=== PATIENT | female | born 1980 | race Caucasian/White ===

== ENCOUNTER 2017-08-08 15:21 | Emergency (ER) | payer SELFPAY ==
[~2017-08-08] VITALS: Ht 172.7 cm; Wt 108.9 kg
[~2017-08-08 15:21] MED LIST: ALB0.5V IH; BUTA-273 PO; DICL50TA4 PO; FAMO-119 PO; GABA600T2 PO; MONT10TA21 PO; OMEP20TA7 PO; OMEP40CA36 PO; ONDN4T PO; RT-ALBUINH IH
--- NOTE | 2017-08-08 15:35 | ED EENT ---
History of Present Illness General Stated Complaint: L SIDE FACIAL DROOP Source: patient Exam Limitations: no limitations History of Present Illness Date Seen by Provider: Aug 08, 2017 Time Seen by Provider: 15:30 Initial Comments to ER per private vehicle with reports of left-sided facial drooping. She had pain behind left ear yesterday evening, she took several Excedrin to alleviate this pain. Even wearing her sunglasses is painful. Today she awakened with left facial paralysis involving the forehead the cheek and the mandible. Her eye does not close on the left. She denies any weakness of upper or lower extremities. No history of this.she also reports a metallic taste in her mouth. Timing/Duration: abrupt Severity: moderate Location: facial Associated Symptoms: No fever Allergies and Home Medications Allergies Coded Allergies: pregabalin (Verified Allergy, Unknown, 06/26/17) sulfamethoxazole (Verified Allergy, Unknown, 06/26/17) trimethoprim (Verified Allergy, Unknown, 06/26/17) Home Medications Acyclovir 400 Mg Tablet, 400 MG PO 5XD Prescribed by: MOHSEN CERRATO on 08/08/17 154 Albuterol Sulfate 2.5 Mg/0.5 Ml Vial.neb, 2.5 MG IH Q6H PRN for SHORTNESS OF BREATH, (Reported) Albuterol Sulfate 1 Puff Puff, 2 PUFF IH Q4H, (Reported) 1 PUFF = 90 MCG Butalbital/Aspirin/Caffeine 1 Each Tablet, 1 EACH PO BID, (Reported) Diclofenac Potassium 50 Mg Tablet, 50 MG PO BID, (Reported) Famotidine 20 Mg Tablet, 20 MG PO BID Prescribed by: DRISS BOWLES on 06/26/17 140 Gabapentin 600 Mg Tablet, 600 MG PO TID, (Reported) Montelukast Sodium 10 Mg Tablet, 10 MG PO DAILY, (Reported) Omeprazole 40 Mg Capsule.dr, 40 MG PO DAILY, (Reported) Omeprazole 20 Mg Tablet.dr, 20 MG PO BID Prescribed by: DRISS BOWLES on 06/26/17 140 Ondansetron HCl 4 Mg Tab, 8 MG PO DAILY, (Reported) Pantoprazole Sodium 40 Mg Tablet., 40 MG PO DAILY Prescribed by: MOHSEN CERRATO on 08/08/17 154 Prednisone 5 Mg Tablet, 5 MG PO UD 10 tablets daily for 5 days then reduce by one tablet daily until gone Prescribed by: MOHSEN CERRATO on 08/08/17 2154 Patient Home Medication List Home Medication List Reviewed: Yes Review of Systems Constitutional: see HPI Eyes: See HPI, Other Ears: No Symptoms Reported Nose: no symptoms reported Mouth: no symptoms reported Throat: no symptoms reported Respiratory: no symptoms reported Cardiovascular: no symptoms reported Musculoskeletal: no symptoms reported Skin: no symptoms reported Neurological: No Symptoms Reported Hematologic/Lymphatic: No Symptoms Reported Immunological/Allergic: no symptoms reported Past Yovtunq-Ijhqei-Ardrsx Hx Patient Social History Drug of Choice: marijuana Type Used: Cigars Recent Foreign Travel: No Contact w/Someone Who Travel: No Past Medical History Surgeries: Yes (gastric ulcers/laser surgery) Abdominal, Hysterectomy Respiratory: Yes COPD Cardiac: Yes Hypertension Neurological: No Genitourinary: No Gastrointestinal: Yes Ulcer Musculoskeletal: Yes Degenerate Disk Disease Endocrine: No HEENT: No Cancer: No Psychosocial: Yes Anxiety, Bipolar, Depression Integumentary: No Blood Disorders: Yes (Hepatitis C) Physical Exam Vital Signs Vital Signs - First Documented 08/08/17 15:40 Temp 97.1 Pulse 110 Resp 27 B/P (MAP) 189/99 (129) Pulse Ox 95 General Appearance: WD/WN, no apparent distress Eyes: bilateral eye normal inspection, bilateral eye PERRL, bilateral eye EOMI Ears: bilateral ear auricle normal, bilateral ear canal normal, bilateral ear TM normal Mouth/Throat: normal mouth inspection, pharynx normal Neck: non-tender, full range of motion Respiratory: no respiratory distress, no accessory muscle use Gastrointestinal: normal bowel sounds, non tender Neurologic/Psychiatric: alert, normal mood/affect, oriented x 3 Skin: normal color, warm/dry , the cheek, lower face. There is no extremity weakness or other neurologic deficit. She is tender to palpation over the mastoid process but this is without erythema or swelling. Tympanic membrane is normal in appearance. Progress/Results/Core Measures Results/Orders Lab Results Laboratory Tests Test 08/08/17 15:51 Range/Units White Blood Count 9.6 4.3-11.0 10^3/uL Red Blood Count 5.45 4.35-5.85 10^6/uL Hemoglobin 16.4 H 11.5-16.0 G/DL Hematocrit 47 35-52 % Mean Corpuscular Volume 87 80-99 FL Mean Corpuscular Hemoglobin 30 25-34 PG Mean Corpuscular Hemoglobin Concent 35 32-36 G/DL Red Cell Distribution Width 13.2 10.0-14.5 % Platelet Count 298 130-400 10^3/uL Mean Platelet Volume 11.8 H 7.4-10.4 FL Neutrophils (%) (Auto) 62 42-75 % Lymphocytes (%) (Auto) 27 12-44 % Monocytes (%) (Auto) 9 0-12 % Eosinophils (%) (Auto) 2 0-10 % Basophils (%) (Auto) 0 0-10 % Neutrophils # (Auto) 5.9 1.8-7.8 X 10^3 Lymphocytes # (Auto) 2.6 1.0-4.0 X 10^3 Monocytes # (Auto) 0.8 0.0-1.0 X 10^3 Eosinophils # (Auto) 0.2 0.0-0.3 10^3/uL Basophils # (Auto) 0.0 0.0-0.1 10^3/uL Sodium Level 140 135-145 MMOL/L Potassium Level 3.8 3.6-5.0 MMOL/L Chloride Level 107 98-107 MMOL/L Carbon Dioxide Level 19 L 21-32 MMOL/L Anion Gap 14 5-14 MMOL/L Blood Urea Nitrogen 12 7-18 MG/DL Creatinine 0.82 0.60-1.30 MG/DL Estimat Glomerular Filtration Rate > 60 BUN/Creatinine Ratio 15 Glucose Level 91 70-105 MG/DL Calcium Level 10.1 8.5-10.1 MG/DL Total Bilirubin 0.4 0.1-1.0 MG/DL Aspartate Amino Transf (AST/SGOT) 22 5-34 U/L Alanine Aminotransferase (ALT/SGPT) 28 0-55 U/L Alkaline Phosphatase 83 40-136 U/L Total Protein 8.7 H 6.4-8.2 GM/DL Albumin 4.8 H 3.2-4.5 GM/DL My Orders Orders - MOHSEN CERRATO IN [employer] Cbc With Automated Diff (08/08/17 15:29) Comprehensive Metabolic Panel (08/08/17 15:29) Ua Culture If Indicated (08/08/17 15:29) Ct Head Wo (08/08/17 15:29) Hydrocodone/Apap 5/325 Tablet (Lortab 5 (08/08/17 16:00) Medications Given in ED Current Medications Medications Dose Ordered Sig/[place] Route Start Time Stop Time Status Last Admin Dose Admin Acetaminophen/ Hydrocodone Bitart 1 tab ONCE ONCE PO 08/08/17 16:00 08/08/17 16:01 DC 08/08/17 16:13 1 TAB Vital Signs/I&O 08/08/17 15:40 Temp 97.1 Pulse 110 Resp 27 B/P (MAP) 189/99 (129) Pulse Ox 95 Departure Impression Primary Impression: May's palsy Disposition: HOME, SELF-CARE Condition: Stable Departure-Patient Inst. Decision time for Depature: 15:41 Referrals: NO,LOCAL PHYSICIAN (PCP/Family) Primary Care Physician Patient Instructions: May's Palsy Add. Discharge Instructions: 1. Steroids as directed 2. Follow-up with your doctor next week 3. Return to ER for any worsening.. If you cannot afford the antivirals ( acyclovir) the steroids will be the most beneficial so definitely fill the prednisone. Scripts Hydrocodone/Acetaminophen ([place] 5-325 Tablet) 1 Each Tablet 1 EACH PO Q4H PRN for PAIN-MODERATE TO SEVERE, #5 TAB do not fill unless prednisone and acyclovir is also filled Prov: MOHSEN CERRATO APRN 08/08/17 Pantoprazole Sodium (Protonix) 40 Mg Tablet.dr 40 MG PO DAILY, #14 TAB Prov: MOHSEN CERRATO APRN 08/08/17 Acyclovir (Acyclovir) 400 Mg Tablet 400 MG PO 5XD, #35 TAB Prov: MOHSEN CERRATO APRN 08/08/17 Prednisone (Prednisone) 5 Mg Tablet 5 MG PO UD, #95 TAB 10 tablets daily for 5 days then reduce by one tablet daily until gone Prov: MOHSEN CERRATO APRN 08/08/17 Work/School Note: Work Release Form Date Seen in the Emergency Department: Aug 08, 2017 Return to Work: Aug 10, 2017 MOHSEN CERRATO APRN Aug 08, 2017 15:35
[2017-08-08] MEDS ORDERED: PRED5TAB PO (15:44)
[2017-08-08] MEDS ORDERED: ACYC400T PO (15:44)
[2017-08-08] MEDS ORDERED: PANT40TA2 PO (15:44)
[2017-08-08 16:00] LABS: BASOPHILS % (AUTO) 0 % (0-10); EOSINOPHILS # (AUTO) 0.2 10^3/uL (0.0-0.3); EOSINOPHILS % (AUTO) 2 % (0-10); HEMATOCRIT 47 % (35-52); HEMOGLOBIN 16.4 G/DL (11.5-16.0); LYMPHOCYTES # (AUTO) 2.6 X 10^3 (1.0-4.0); LYMPHOCYTES % (AUTO) 27 % (12-44); MEAN CORPUSCULAR HEMOGLOBIN 30 PG (25-34); MEAN CORPUSCULAR HGB CONC 35 G/DL (32-36); MEAN CORPUSCULAR VOLUME 87 FL (80-99); MEAN PLATELET VOLUME 11.8 FL (7.4-10.4); MONOCYTES # (AUTO) 0.8 X 10^3 (0.0-1.0); MONOCYTES % (AUTO) 9 % (0-12); NEUTROPHILS # (AUTO) 5.9 X 10^3 (1.8-7.8); NEUTROPHILS % (AUTO) 62 % (42-75); PLATELET COUNT 298 10^3/uL (130-400); RED BLOOD COUNT 5.45 10^6/uL (4.35-5.85); RED CELL DISTRIBUTION WIDTH 13.2 % (10.0-14.5); WHITE BLOOD COUNT 9.6 10^3/uL (4.3-11.0)
[2017-08-08] MEDS ORDERED: HYDROcodone/APAP 5 MG/325 MG (LORTAB) TAB PO ONE (16:00)
[2017-08-08 16:20] LABS: ALANINE AMINOTRANSFERASE 28 U/L (0-55); ALBUMIN 4.8 GM/DL (3.2-4.5); ALKALINE PHOSPHATASE 83 U/L (40-136); BILIRUBIN,TOTAL 0.4 MG/DL (0.1-1.0); BUN/CREATININE RATIO 15; CALCIUM 10.1 MG/DL (8.5-10.1); CARBON DIOXIDE 19 MMOL/L (21-32); CHLORIDE 107 MMOL/L (98-107); CREATININE SERUM 0.82 MG/DL (0.60-1.30); GFR ESTIMATED > 60; GLUCOSE 91 MG/DL (70-105); POTASSIUM 3.8 MMOL/L (3.6-5.0); SODIUM 140 MMOL/L (135-145); TOTAL PROTEIN 8.7 GM/DL (6.4-8.2)
--- NOTE | 2017-08-08 16:45 | Diagnostic Imaging Report ---
PROCEDURE: CT head without contrast. TECHNIQUE: Multiple contiguous axial images were obtained through the brain without the use of intravenous contrast. INDICATION: Left-sided facial droop. Tongue numbness. COMPARISON: None. FINDINGS: No intracranial hemorrhage, mass effect, hydrocephalus, or extra-axial fluid collections. No CT evidence of acute infarction. Osseous structures are intact. The visualized paranasal sinuses and mastoids are clear. IMPRESSION: Negative head CT. Dictated by: Dictated on workstation # [id number]
[2017-08-08] MEDS ORDERED: HYDR-757 PO (16:48)
[2017-08-08 16:59] VITALS: BP 189/99
== END 2017-08-08 16:59 | disposition home or self-care (01) ==
LOC: EDUNIT# 15:21 → ER 15:22
DX: G51.0 Bell's palsy (principal); J44.9 Chronic obstructive pulmonary disease, unspecified; I10 Essential (primary) hypertension; F41.9 Anxiety disorder, unspecified; F31.9 Bipolar disorder, unspecified; F17.210 Nicotine dependence, cigarettes, uncomplicated; Z87.19 Personal history of other diseases of the digestive system; Z90.710 Acquired absence of both cervix and uterus; Z98.890 Other specified postprocedural states; Z88.1 Allergy status to other antibiotic agents; Z88.2 Allergy status to sulfonamides
CPT/HCPCS: 36415; 70450; 80053; 85025

== ENCOUNTER 2022-01-16 12:58 | Emergency (ER) | payer SELFPAY ==
[~2022-01-16] VITALS: Ht 172 cm; Wt 146.0 kg
[~2022-01-16 12:58] MED LIST changes: +ACYC400T21 PO; +ALBU8.5H6 IH; -GABA600T2 PO; +GBPN600T PO; +HYDR-4226 PO; +OMEP20TA56 PO; -OMEP20TA7 PO; -OMEP40CA36 PO; +OMEP40CA6 PO; +PANT40TA2 PO; +PRED5TAB PO; -RT-ALBUINH IH
--- NOTE | 2022-01-16 13:13 | ED General ---
General Chief Complaint: Cardiac/General Problems Stated Complaint: SOA/CHEST PAIN/LEFT ARM NUMBNESS Nursing Triage Note: ARRIVED VIA AMB TO ROOM 05 ET STATES SHE HAS BEEN SICK FOR APPX 2 WEEKS BUT TODAY STARTED HAVING SOA, CHEST PAIN, AND LEFT ARM PAIN. Source of Information: Patient Exam Limitations: No Limitations History of Present Illness Date Seen by Provider: Jan 16, 2022 Time Seen by Provider: 13:00 Initial Comments 41-year-old female presents to the emergency department today for chest pain, shortness of breath and left arm numbness. She tells me she has been sick for 2 weeks. Initially she was diagnosed with bronchitis and started on a steroid and antibiotic. She was feeling worse after completion of this therapy so she went to the ER in [place]. She is told she had a "touch of pneumonia." She was started on a higher dose of steroids and a "more aggressive antibiotic." She is not having any fevers or chills but is still having significant coughing fits. She does have COPD and has been using nebulizer at home which has been helping her. She was getting out of car earlier and had an episode of sharp stabbing chest pain that was central with radiation to her left arm. She also had some numbness in her left arm during this event. Symptoms have completely resolved at present. Allergies and Home Medications Allergies Coded Allergies: pregabalin (Verified Allergy, Unknown, 06/26/17) sulfamethoxazole (Verified Allergy, Unknown, 06/26/17) trimethoprim (Verified Allergy, Unknown, 06/26/17) Patient Home Medication List Home Medication List Reviewed: Yes Acyclovir (Acyclovir) 400 Mg Tablet, 400 MG PO 5XD Prescribed by: MOHSEN CERRATO on 08/08/17 4917 Albuterol Sulfate (Albuterol Sulfate) 2.5 Mg/0.5 Ml Vial.neb, 2.5 MG IH Q6H PRN for SHORTNESS OF BREATH, (Reported) Entered as Reported by: NARCISA OLSEN on 06/26/17 1159 Albuterol Sulfate (Ventolin Hfa) 1 Puff Puff, 2 PUFF IH Q4H, (Reported) Entered as Reported by: NARCISA OLSEN on 06/26/17 1159 Butalbital/Aspirin/Caffeine (Yzqhig-Uqmytwn-Eqavi 50-325-40) 1 Each Tablet, 1 EACH PO BID, (Reported) Entered as Reported by: NARCISA OLSEN on 06/26/17 1159 Diclofenac Potassium (Diclofenac Potassium) 50 Mg Tablet, 50 MG PO BID, (Reported) Entered as Reported by: NARCISA OLSEN on 06/26/17 115 Famotidine (Pepcid) 20 Mg Tablet, 20 MG PO BID Prescribed by: DRISS BOWLES on 06/26/17 1408 Gabapentin (Gabapentin) 600 Mg Tablet, 600 MG PO TID, (Reported) Entered as Reported by: NARCISA OLSEN on 06/26/17 1159 Hydrocodone/Acetaminophen (Hydrocodone/Acetaminophen 5 MG/325 MG TAB) 1 Each Tablet, 1 EACH PO Q4H PRN for PAIN-MODERATE TO SEVERE Prescribed by: MOHSEN CERRATO on 08/08/17 1648 Montelukast Sodium (Singulair) 10 Mg Tablet, 10 MG PO DAILY, (Reported) Entered as Reported by: NARCISA OLSEN on 06/26/17 115 Omeprazole (Omeprazole) 40 Mg Capsule.dr, 40 MG PO DAILY, (Reported) Entered as Reported by: NARCISA OLSEN on 06/26/17 1159 Omeprazole (Omeprazole) 20 Mg Tablet.dr, 20 MG PO BID Prescribed by: DRISS BOWLES on 06/26/17 1408 Ondansetron HCl (Zofran) 4 Mg Tab, 8 MG PO DAILY, (Reported) Entered as Reported by: NARCISA OLSEN on 06/26/17 115 Pantoprazole Sodium (Protonix) 40 Mg Tablet.dr, 40 MG PO DAILY Prescribed by: MOHSEN CERRATO on 08/08/17 154 Prednisone (Prednisone) 5 Mg Tablet, 5 MG PO UD Prescribed by: MOHSEN CERRATO on 08/08/17 154 Review of Systems Review of Systems Constitutional: no symptoms reported EENTM: nose pain, throat pain Respiratory: cough, short of breath Cardiovascular: chest pain Gastrointestinal: no symptoms reported Genitourinary: no symptoms reported Musculoskeletal: no symptoms reported Skin: no symptoms reported Psychiatric/Neurological: No Symptoms Reported Hematologic/Lymphatic: No Symptoms Reported Immunological/Allergic: no symptoms reported Past Ycqfzsp-Saoylq-Riollz Hx Patient Social History Tobacco Use?: Yes Smoking Status: Current Everyday Smoker Substance use?: Yes Substance type: Marijuana Alcohol Use?: No Immunizations Up To Date First/Initial COVID19 Vaccinat: 1 WEEK AGO COVID19 Vaccine Senior Clinician: PHIAMADEO Past Medical History Surgeries: Yes (gastric ulcers/laser surgery) Abdominal, Hysterectomy Respiratory: Yes COPD Cardiac: Yes Hypertension Neurological: No Genitourinary: No Gastrointestinal: Yes Ulcer Musculoskeletal: Yes Degenerate Disk Disease Endocrine: No HEENT: No Cancer: No Psychosocial: Yes Anxiety, Bipolar, Depression Integumentary: No Blood Disorders: Yes (Hepatitis C) Family Medical History Reviewed Nursing Family Hx No Pertinent Family Hx Physical Exam Vital Signs Vital Signs - First Documented 01/16/22 13:00 Temp 36.6 Pulse 101 Resp 16 B/P (MAP) 141/101 (114) Pulse Ox 97 O2 Delivery Room Air Capillary Refill : Less Than 3 Seconds Height, Weight, BMI Height: 5'8.00" Weight: 240lbs. oz. 108.410651ny; 49.00 BMI Method:Stated General Appearance: No Apparent Distress, WD/WN HEENT: Normal ENT Inspection, Pharynx Normal Neck: Full Range of Motion, Normal Inspection, Non Tender, Supple Respiratory: Chest Non Tender, No Accessory Muscle Use, No Respiratory Distress, Wheezing (Expiratory wheezing bilaterally.) Cardiovascular: No Edema, No Gallop, No JVD, No Murmur, Normal Peripheral Pulses, Tachycardia (Intermittent tachycardia) Gastrointestinal: Normal Bowel Sounds, No Organomegaly, No Pulsatile Mass, Non Tender, Soft Back: Normal Inspection, No CVA Tenderness, No Vertebral Tenderness Extremity: Normal Capillary Refill, Normal Inspection, Normal Range of Motion, Non Tender, No Calf Tenderness Neurologic/Psychiatric: Alert, Oriented x3, No Motor/Sensory Deficits, Normal Mood/Affect, buckle attacher II-XII Norm as Tested Skin: Normal Color, Warm/Dry Lymphatic: No Adenopathy Progress/Results/Core Measures Suspected Sepsis SIRS Temperature: Pulse: 101 Respiratory Rate: 16 Laboratory Tests 01/16/22 13:00: White Blood Count 12.4H Blood Pressure 141 /101 Mean: 114 Laboratory Tests 01/16/22 13:00: Creatinine 0.94, Platelet Count 345 Results/Orders Lab Results Laboratory Tests Test 01/16/22 13:00 Range/Units White Blood Count 12.4 H 4.3-11.0 10^3/uL Red Blood Count 5.02 3.80-5.11 10^6/uL Hemoglobin 15.7 11.5-16.0 g/dL Hematocrit 46 35-52 % Mean Corpuscular Volume 92 80-99 fL Mean Corpuscular Hemoglobin 31 25-34 pg Mean Corpuscular Hemoglobin Concent 34 32-36 g/dL Red Cell Distribution Width 13.2 10.0-14.5 % Platelet Count 345 130-400 10^3/uL Mean Platelet Volume 10.5 9.0-12.2 fL Immature Granulocyte % (Auto) 0 % Neutrophils (%) (Auto) 64 42-75 % Lymphocytes (%) (Auto) 26 12-44 % Monocytes (%) (Auto) 7 0-12 % Eosinophils (%) (Auto) 2 0-10 % Basophils (%) (Auto) 0 0-10 % Neutrophils # (Auto) 8.0 H 1.8-7.8 10^3/uL Lymphocytes # (Auto) 3.3 1.0-4.0 10^3/uL Monocytes # (Auto) 0.9 0.0-1.0 10^3/uL Eosinophils # (Auto) 0.2 0.0-0.3 10^3/uL Basophils # (Auto) 0.0 0.0-0.1 10^3/uL Immature Granulocyte # (Auto) 0.0 0.0-0.1 10^3/uL D-Dimer < 0.27 0.00-0.49 UG/ML Sodium Level 139 135-145 MMOL/L Potassium Level 4.2 3.6-5.0 MMOL/L Chloride Level 103 98-107 MMOL/L Carbon Dioxide Level 22 21-32 MMOL/L Anion Gap 14 5-14 MMOL/L Blood Urea Nitrogen 13 7-18 MG/DL Creatinine 0.94 0.60-1.30 MG/DL Estimat Glomerular Filtration Rate 78 BUN/Creatinine Ratio 14 Glucose Level 114 H 70-105 MG/DL Calcium Level 9.7 8.5-10.1 MG/DL Troponin I < 0.028 <0.028 NG/ML My Orders Orders - DENA SANTIAGO DO Ekg Tracing (01/16/22 13:04) Troponin I Lissa (01/16/22 13:11) Fibrin Degradation Products (01/16/22 13:11) Chest 1 View, Ap/Pa Only (01/16/22 13:11) Cbc With Automated Diff (01/16/22 13:11) Basic Metabolic Panel (01/16/22 13:11) Albuterol/Ipra Inhalation Soln (Duoneb I (01/16/22 13:15) Svn Small Volume Nebulizer (01/16/22 13:13) Medications Given in ED Current Medications Medications Dose Ordered Sig/[place] Route Start Time Stop Time Status Last Admin Dose Admin Albuterol/ Ipratropium 3 ml ONCE ONCE INH 01/16/22 13:15 01/16/22 13:16 DC 01/16/22 13:20 3 ML Vital Signs/I&O 01/16/22 01/16/22 13:00 13:46 Temp 36.6 36.6 Pulse 101 88 Resp 16 16 B/P (MAP) 141/101 (114) 111/76 Pulse Ox 97 93 O2 Delivery Room Air Room Air Capillary Refill : Less Than 3 Seconds Blood Pressure Mean: 114 ECG EKG : Comment Sinus rhythm rate of 96 bpm. Normal intervals. Normal axis. No ST or T wave abnormalities. No ectopy. No STEMI. Departure Communication (Admissions) Patient is hemodynamically stable. No evidence for ACS with normal EKG, normal troponin. D-dimer is negative, obtain because of slight tachycardia intermittently. This has resolved with rest in the bed. Chest x-ray is clear. She has had symptoms for quite some time now, I think this is a postviral syndrome cough and pleurisy. Should be treated conservatively and discharged in stable condition. Impression Primary Impression: Non-cardiac chest pain Additional Impression: Viral URI with cough Disposition: HOME, SELF-CARE Condition: Stable Departure-Patient Inst. Referrals: NO,LOCAL PHYSICIAN (PCP/Family) Primary Care Physician Patient Instructions: Chest Pain, Viral Syndrome (DC), Cough, Adult ED Add. Discharge Instructions: Continue home medications as previously prescribed. I do believe your symptoms are still related to a viral type illness. Unfortunately the cough from viral illnesses can last 2 to 4 weeks even after her other symptoms resolved. I think her chest pain was related to pleurisy, inflammation of the lining of your lung secondary to coughing. Use ibuprofen or Tylenol as needed for the symptoms. Return to the emergency department for any severe concerns. Follow-up with your primary doctor should your symptoms persist. All discharge instructions reviewed with patient and/or family. Voiced understanding. DENA SANTIAGO DO Jan 16, 2022 13:13
[2022-01-16] MEDS ORDERED: RT-ALBUTEROL/IPRATROPIUM 3 ML (DUONEB) VIAL INH ONE (13:15)
[2022-01-16 13:16] LABS: BASOPHILS % (AUTO) 0 % (0-10); EOSINOPHILS # (AUTO) 0.2 10^3/uL (0.0-0.3); EOSINOPHILS % (AUTO) 2 % (0-10); HEMATOCRIT 46 % (35-52); HEMOGLOBIN 15.7 g/dL (11.5-16.0); LYMPHOCYTES # (AUTO) 3.3 10^3/uL (1.0-4.0); LYMPHOCYTES % (AUTO) 26 % (12-44); MEAN CORPUSCULAR HEMOGLOBIN 31 pg (25-34); MEAN CORPUSCULAR HGB CONC 34 g/dL (32-36); MEAN CORPUSCULAR VOLUME 92 fL (80-99); MEAN PLATELET VOLUME 10.5 fL (9.0-12.2); MONOCYTES # (AUTO) 0.9 10^3/uL (0.0-1.0); MONOCYTES % (AUTO) 7 % (0-12); NEUTROPHILS % (AUTO) 64 % (42-75); PLATELET COUNT 345 10^3/uL (130-400); WHITE BLOOD COUNT 12.4 10^3/uL (4.3-11.0)
[2022-01-16 13:24] LABS: CHLORIDE 103 MMOL/L (98-107); POTASSIUM 4.2 MMOL/L (3.6-5.0); SODIUM 139 MMOL/L (135-145)
[2022-01-16 13:25] LABS: CALCIUM 9.7 MG/DL (8.5-10.1)
[2022-01-16 13:26] LABS: GLUCOSE 114 MG/DL (70-105)
[2022-01-16 13:27] LABS: CARBON DIOXIDE 22 MMOL/L (21-32)
--- NOTE | 2022-01-16 13:29 | Diagnostic Imaging Report ---
EXAMINATION: Chest, 1 view. HISTORY: CP, dyspnea, cough. COMPARISON: None available. FINDINGS: Heart size and pulmonary vasculature are normal. The lungs are clear without consolidation, pleural effusion, or pneumothorax. The osseous structures are intact. IMPRESSION: No acute radiographic abnormality in the chest. Dictated by: Dictated on workstation # [id number]
[2022-01-16 13:30] LABS: CREATININE SERUM 0.94 MG/DL (0.60-1.30); GFR ESTIMATED 78
[2022-01-16 13:31] LABS: BUN/CREATININE RATIO 14
[2022-01-16 13:46] VITALS: BP 111/76
== END 2022-01-16 13:48 | disposition home or self-care (01) ==
LOC: EDUNIT# 12:58 → ER 13:01
DX: J06.9 Acute upper respiratory infection, unspecified (principal); F17.200 Nicotine dependence, unspecified, uncomplicated; Z28.311 Partially vaccinated for COVID-19; Z87.09 Personal history of other diseases of the respiratory system
CPT/HCPCS: 36415; 71045; 80048; 84484; 85025; 85379; 93005